=== PATIENT | male | born 1950 | race African-American/Black ===

== ENCOUNTER 2016-10-19 05:57 | Emergency (ER) | payer MEDICAID ==
[~2016-10-19] VITALS: Ht 175.3 cm; Wt 82.4 kg
[~2016-10-19 05:57] MED LIST: AMLO10TA4 PO; DIPH25CA61 PO; ENAL10TA PO; FAMO20TA7 PO; PRED20TA PO
[2016-10-19 05:58] VITALS: BP 175/98
[2016-10-19] MEDS ORDERED: BECL8.7A5 INH (06:26)
[2016-10-19] MEDS ORDERED: ALBU8.5H3 IH (06:26)
[2016-10-19] MEDS ORDERED: MAALOX/HYOSCYAMINE/LIDOCAINE 45 ML BOTTLE ONE (06:27)
[2016-10-19] MEDS ORDERED: MAALOX/HYOSCYAMINE/LIDOCAINE 45 ML BOTTLE PO ONE (06:30)
[2016-10-19] MEDS ORDERED: FAMOTIDINE 20 MG TABLET ONE (06:56)
[2016-10-19] MEDS ORDERED: ONDANSETRON ODT 4 MG ONE (06:56)
[2016-10-19] MEDS ORDERED: ONDANSETRON ODT 4 MG PO ONE (07:00)
[2016-10-19] MEDS ORDERED: FAMOTIDINE 20 MG TABLET PO ONE (07:00)
[2016-10-19 07:22] LABS: HEMOGLOBIN 15.4 g/dL (13.7-18.0)
[2016-10-19 07:31] LABS: BLOOD UREA NITROGEN 9 mg/dL (7-18)
[2016-10-19 07:34] LABS: ASPARTATE AMINO TRANSFERASE 32 U/L (15-37)
== END 2016-10-19 08:20 | disposition home or self-care (01) ==
LOC: ED 06:25
DX: K29.00 Acute gastritis without bleeding (principal); R10.84 Generalized abdominal pain; I10 Essential (primary) hypertension; Z88.8 Allergy status to other drugs, medicaments and biological substances
CPT/HCPCS: 36415; 80053; 83690; 85025; 93005; 99285; Q0162

== ENCOUNTER 2016-11-01 12:57 | Emergency (ER) | payer MEDICAID ==
[~2016-11-01] VITALS: Ht 175.3 cm; Wt 81.7 kg
[~2016-11-01 12:57] MED LIST changes: +ALBU8.5H3 IH; +BECL8.7A5 INH
[2016-11-01] MEDS ORDERED: DIPHENHYDRAMINE 50 MG/ML, 1ML ONE (14:28)
[2016-11-01] MEDS ORDERED: methylPREDNISolone SOD SUCC 125 MG/2 ML ONE (14:28)
[2016-11-01] MEDS ORDERED: EPINEPHRINE 1 MG/ML, 1ML ONE (14:28)
[2016-11-01] MEDS ORDERED: SODIUM CHLORIDE FLUSH 10ML SYR IVF ONE (14:30)
[2016-11-01] MEDS ORDERED: methylPREDNISolone SOD SUCC 125 MG/2 ML IVPush ONE (14:30)
[2016-11-01] MEDS ORDERED: DIPHENHYDRAMINE 50 MG/ML, 1ML IVPush ONE (14:30)
[2016-11-01] MEDS ORDERED: EPINEPHRINE 1 MG/ML, 1ML SQ ONE (14:30)
[2016-11-01] MEDS ORDERED: MAALOX/HYOSCYAMINE/LIDOCAINE 45 ML BOTTLE ONE (15:30)
[2016-11-01] MEDS ORDERED: MAALOX/HYOSCYAMINE/LIDOCAINE 45 ML BOTTLE PO ONE (15:30)
[2016-11-01 16:43] VITALS: BP 137/88
== END 2016-11-01 16:47 | disposition home or self-care (01) ==
LOC: ED 15:25
DX: L25.8 Unspecified contact dermatitis due to other agents (principal); T47.0X5A Adverse effect of histamine H2-receptor blockers, initial encounter; T47.1X5A Adverse effect of other antacids and anti-gastric-secretion drugs, initial encounter; I10 Essential (primary) hypertension; K29.00 Acute gastritis without bleeding; Y92.89 Other specified places as the place of occurrence of the external cause
CPT/HCPCS: 96372; 96374; 96375; 99284; J0171; J1200; J2930